=== PATIENT | female | born 1980 | race Caucasian/White ===

== ENCOUNTER 2019-09-17 10:06 | Inpatient (IN) | payer MEDICAID ==
[~2019-09-17] VITALS: Ht 165.1 cm; Wt 104.3 kg
[2019-09-17 10:12] VITALS: BP 97/45
--- NOTE | 2019-09-17 10:17 | NUR ---
PT AMBULATED TO ER BED 09
--- NOTE | 2019-09-17 10:28 | NUR ---
39/F /O DIARRHEA & EPIGASTRIC PAIN X YESTERDAY. TEMP 100.8 AT THIS TIME. DID NOT TAKE ANY ANTIPYRETIC TODAY. EPIGASTRIUM MODERATELY TENDER TO PALPATION. ACTIVE BOWEL SOUNDS. PAIN 6/10; VSS; BEDRAILS UP X1; ERMD TO EVALUATE PATIENT. MED HX :ASTHMA
[2019-09-17] MEDS ORDERED: ACETAMINOPHEN EXTRA STRENGTH 500 MG TAB PO ONE (10:30)
[2019-09-17] MEDS ORDERED: LEVOFLOXACIN 500 MG TAB PO ONE (11:00)
[2019-09-17] MEDS ORDERED: LOPERAMIDE 2 MG CAP PO ONE (11:00)
[2019-09-17] MEDS ORDERED: KETOROLAC 60 MG/2 ML VIAL IM ONE (11:00)
--- NOTE | 2019-09-17 11:55 | NUR ---
DR. MILLER SPEAKING WITH PATIENT AT BEDSIDE.
[2019-09-17 11:59] LABS: APPEARANCE,URINE SL CLOUDY (CLEAR); BILIRUBIN,URINE NEGATIVE (NEGATIVE); BLOOD, URINE 2+ (NEGATIVE); COLOR,URINE YELLOW (YELLOW); LEUKOCYTE ESTERASE ,URINE NEGATIVE (NEGATIVE); NITRITE, URINE NEGATIVE (NEGATIVE); UGLUCOSE NEGATIVE (NEGATIVE)
[2019-09-17 12:57] LABS: RBC,URINE 0-5 /HPF (0-5)
[2019-09-17 13:00] LABS: WBC,URINE 0-5 /HPF (0-5)
[2019-09-17] MEDS ORDERED: NACL 0.9% 1,000 ML IV ONE (13:35)
[2019-09-17] MEDS ORDERED: NACL 0.9% 1,000 ML IV SCH (13:36)
--- NOTE | 2019-09-17 13:52 | NUR ---
LAB DRAW HANDED TO POLICE RESERVES COMMANDER.
[2019-09-17 14:19] LABS: BASOPHILS # (AUTO) 0.1 K/uL (0.00-0.22); BASOPHILS % (AUTO) 0.6 % (0.0-2.0); HEMATOCRIT 39.7 % (36-48); HEMOGLOBIN 13.3 g/dL (12.0-16.0); LYMPHOCYTES # (AUTO) 0.8 K/uL (2.5-16.5); LYMPHOCYTES % (AUTO) 7.7 % (20.5-51.1); MEAN CORPUSCULAR HEMOGLOBIN 29 pg (27-31); MEAN CORPUSCULAR HGB CONC 33 g/dL (33-37); MEAN CORPUSCULAR VOLUME 86.1 fL (80-94); MONOCYTES # (AUTO) 0.8 K/uL (0.8-1.0); MONOCYTES % (AUTO) 7.9 % (1.7-9.3); NEUTROPHILS % (AUTO) 83.8 % (42.2-75.2); PLATELET COUNT (AUTO) 242 K/uL (140-450); RED BLOOD CELL COUNT(AUTO) 4.61 MIL/uL (4.20-5.40); RED CELL DISTRIBUTION WIDTH 14.4 % (11.6-13.7); WHITE BLOOD COUNT (AUTO) 10.7 K/uL (4.8-10.8)
--- NOTE | 2019-09-17 14:34 | NUR ---
PT RETURNED FROM CT VIA WHEELCHAIR.
[2019-09-17 15:56] LABS: POTASSIUM 3.3 mmol/L (3.5-5.1)
[2019-09-17 15:57] LABS: ANION GAP 16.2 (8-16); CARBON DIOXIDE 22.1 mmol/L (21-32); CREATININE 0.8 mg/dL (0.6-1.3)
[2019-09-17] MEDS ORDERED: DOCUSATE SODIUM 100 MG GELCAP PO PRN (16:45)
[2019-09-17] MEDS ORDERED: ONDANSETRON 4 MG/2 ML VIAL IM/IVP PRN (16:45)
--- NOTE | 2019-09-17 16:45 | NUR ---
Patient will be admitted to care of DR. HAILE. Admited to MED SURG. Will go to room 105B. Belongings list completed. Report to SERGE JOEL.
--- NOTE | 2019-09-17 16:45 | NUR ---
PT ARRIVED FROM ER IN WHEELCHAIR, REPORT RECEIVED FROM NOISE TESTER NURSE, PT AMBULATES FROM HALLWAY TO BED WITHOUT PROBLEM WITH STEADY GAIT, PT ORIENTED TO ROOM AND FLOOR, CALL HERNANDEZ WITHIN REACH, SIDE RAILS UP, BED LOCKED IN LOW POSITION, [facility] Addendum: 09/17/19 at 1804 by Raya Painter RN REPORT RECEIVED FROM ER NURSE
[2019-09-17] MEDS ORDERED: POTASSIUM CHLORIDE 10 MEQ TABER PO ONE (16:50)
[2019-09-17] MEDS ORDERED: INSULIN LISPRO SLIDING SCALE 100 UNITS/ML VIAL SUBQ PRN (16:55)
[2019-09-17] MEDS ORDERED: DEXTROSE 50% 50 ML SYR IVP PRN (16:55)
[2019-09-17 17:00] VITALS: BP 137/65
[2019-09-17] MEDS ORDERED: ALBUTEROL SULFATE/IPRATROPIU 3 ML SOL IH PRN (17:00)
[2019-09-17] MEDS: NACL 0.9% 1,000 ML IV SCH (18:12)
[2019-09-17] MEDS: KETOROLAC 15 MG/ML VIAL IVP PRN (18:12)
--- NOTE | 2019-09-17 18:12 | NUR ---
MEDICATED WITH TORADOL FOR ABD PAIN, PT C/O BEING HUNGRY, PER DR DENT, OK TO EAT BRAT DIET, APPLESAUCE AND CRACKERS AND WATER GIVEN AT THIS TIME.
[2019-09-17 19:13] LABS: PHOSPHORUS 1.7 mg/dL (2.5-4.9); THYROID STIMULATING HORMONE 0.6 uIU/mL (0.34-3.74)
--- NOTE | 2019-09-17 19:30 | NUR ---
REPORT GIVEN TO LEAD SYSTEMS ARCHITECT NURSE, PT IN STABLE CONDITION,
--- NOTE | 2019-09-17 19:30 | NUR ---
COLLECTED INFLUENZA SWAB, SENT TO LAB
--- NOTE | 2019-09-17 19:31 | NUR ---
RECEIVED REPORT PT FROM AM NURSE, PT A A O X 4. PT AMBULATORY, MEDSURG. PT NOT IN RESPIRATORY DISTRESS, AND PT WAS GIVEN PAIN MED FOR ABDOMINAL PAIN EARLIER PER PREVIOUS NURSE. WITH NS AT 120 ML/ HR AT THE L AC G 20. PLACED PATIENT IN COMFORTABLE POSITION, CALL LIGHT W/IN REACH. WILL CONTINUE TO MONITOR
[2019-09-17] MEDS ORDERED: cefTRIAXone 1,000 MG VIAL ONE (20:00)
[2019-09-17] MEDS: HYDROcodone/APAP 5/325 MG 1 TAB TAB PO PRN (20:06)
--- NOTE | 2019-09-17 20:06 | NUR ---
PT C/O OF 910 ABDOMINAL PAIN, WILL REASSESS LATER
[2019-09-17] MEDS: BLOOD GLUCOSE MONITORING 1 DEV DEV FS SCH (20:27)
--- NOTE | 2019-09-17 20:37 | NUR ---
RECEIVED PT ON RA, SP02 98% WITH CLEAR BREATH SOUNDS. NO RESPIRATORY DISTRESS NOTED AT THIS TIME. PRN TX NOT GIVEN. PT WAS INFORMED TO CALL RN WHEN EXPERIENCING SOB OR WHEEZING. WILL CONTINUE TO MONITOR PT
[2019-09-17] MEDS: metroNIDAZOLE 500 MG/NS PREMIX 100 ML IV SCH (23:14)
--- NOTE | 2019-09-17 23:30 | NUR ---
COLLECTED URINE FOR URINE CULTURE ; COLLECTED STOOL, FRO STOOL CULTURE, BLACK STOOL NOTED
[2019-09-18] VITALS: BP 126/84
--- NOTE | 2019-09-18 00:48 | NUR ---
WILL INFORM DR. JAILENE FARR STOOL, LOOSE, MODERATE IN AMOUNT; DR. HARLEY AT ED
[2019-09-18 00:49] LABS: BARBITURATE, URINE NEG. ng/ml (NEG <=200); BENZODIAZEPINE, URINE NEG. ng/mL (NEG <=200); CANNABINOID, URINE NEG. ng/mL (NEG <=50); COCAINE, URINE NEG. ng/mL (NEG <=300); OPIATE, URINE NEG. ng/mL (NEG <=2000); PHENCYCLIDINE SCREEN,URINE NEG. ng/mL (NEG <=25)
[2019-09-18] MEDS: NACL 0.9% 1,000 ML IV SCH ×2 (01:02→05:55)
--- NOTE | 2019-09-18 01:15 | NUR ---
INMFORMED DR. DENT, PT REPORTED 5X BM AT HOME AND 4X BM YESTERDAY (STOOL COLLECTED AT 2230 FOR OVA PARASITE, ETC). DR. DENT TO INCLUDE C. DIFF IN THE STOOL. PAPER FOR C. DIFF SENT TO LAB. SPECIMEN STILL AT THE LAB AND INFORMED LAB, RHAIN TO INCLUDE C. DIFF OF THE STOOL IN THE COLLECTED STOOL EARLIER.
[2019-09-18] MEDS: HYDROcodone/APAP 5/325 MG 1 TAB TAB PO PRN ×2 (01:45→13:21)
--- NOTE | 2019-09-18 01:45 | NUR ---
PT AGAIN C/O OF ABD PAIN 07/25 , WILL REASSESS PT. Addendum: 09/18/19 at 0345 by Magalys Cooper RN PAIN MEDS ADMINISTERED
--- NOTE | 2019-09-18 03:46 | NUR ---
PT SLEEPING AT THIS TIME, NO COMPLAINTS,NO RESPIRATORY DISTRESS, NO DIARRHEA. WILL CONTINUE TO MONITOR
[2019-09-18] MEDS: BLOOD GLUCOSE MONITORING 1 DEV DEV FS SCH ×4 (05:42→21:48)
[2019-09-18] MEDS: metroNIDAZOLE 500 MG/NS PREMIX 100 ML IV SCH ×3 (06:21→23:06)
--- NOTE | 2019-09-18 06:56 | NUR ---
PT ASLLEP BUT WASILY AWAKENED BY VERBAL STIMULI, NOT IN RESPIRATORY DISTRESS, FOR MONITORING OF ABDOMINAL PAIN. WILL ENDORSE TO NEXT SHIFT
--- NOTE | 2019-09-18 07:15 | NUR ---
RECEIVED PT FROM NIGHT NURSE. PT AWAKE IN BED, AAOX4. RESPIRATIONS EVEN AND UNLABORED ON ROOM AIR. CLEAR BREATH SOUNDS. IV IN PLACE INFUSING PER ORDER, ASYMPTOMATIC AND PATENT IN L AC 20G. PT DENIES PAIN AT THIS TIME. BED IN LOW POSITION. SAFETY MEASURES IN PLACE. CALL LIGHT WITHIN REACH. WILL CONTINUE TO MONITOR.
[2019-09-18 07:27] LABS: BASOPHILS % (AUTO) 0.4 % (0.0-2.0); EOSINOPHILS % (AUTO) 0.2 % (0.0-4.0); HEMATOCRIT 37.1 % (36-48); HEMOGLOBIN 12.2 g/dL (12.0-16.0); LYMPHOCYTES # (AUTO) 1.2 K/uL (2.5-16.5); LYMPHOCYTES % (AUTO) 15.3 % (20.5-51.1); MEAN CORPUSCULAR HEMOGLOBIN 29 pg (27-31); MEAN CORPUSCULAR HGB CONC 33 g/dL (33-37); MEAN CORPUSCULAR VOLUME 86.7 fL (80-94); MONOCYTES # (AUTO) 1.1 K/uL (0.8-1.0); MONOCYTES % (AUTO) 14.7 % (1.7-9.3); NEUTROPHILS # (AUTO) 5.3 K/uL (1.8-7.7); NEUTROPHILS % (AUTO) 69.4 % (42.2-75.2); PLATELET COUNT (AUTO) 227 K/uL (140-450); RED BLOOD CELL COUNT(AUTO) 4.27 MIL/uL (4.20-5.40); RED CELL DISTRIBUTION WIDTH 14.3 % (11.6-13.7); WHITE BLOOD COUNT (AUTO) 7.6 K/uL (4.8-10.8)
[2019-09-18 07:50] LABS: ANION GAP 13.4 (8-16); CREATININE 0.6 mg/dL (0.6-1.3); POTASSIUM 4.4 mmol/L (3.5-5.1)
[2019-09-18 07:59] LABS: CHOL/HDL RATIO 2.3 (1-4.5)
[2019-09-18 08:00] VITALS: BP 117/65
--- NOTE | 2019-09-18 08:05 | NUR ---
PATIENT HAS BEEN SCREENED AND CATEGORIZED MODERATE NUTRITION RISK. PATIENT WILL BE SEEN WITHIN 3-5 DAYS OF ADMISSION. 09/20/19 09/22/[address]
[2019-09-18 08:21] LABS: FREE T4 (FREE THYROXINE) 1.32 ng/dL (0.76-1.46)
[2019-09-18] MEDS: ACETAMINOPHEN 325 MG TAB PO PRN ×2 (08:47→21:30)
--- NOTE | 2019-09-18 08:52 | NUR ---
MEDICATIONS GIVEN PER ORDER. PT TOLERATED WELL. NO DISTRESS NOTED. WILL CONTINUE TO MONITOR.
--- NOTE | 2019-09-18 11:10 | NUR ---
BLOOD GLUCOSE MONITORED AT THIS TIME. PT DENIES PAIN. NO DISTRESS NOTED. WILL CONTINUE TO MONITOR.
--- NOTE | 2019-09-18 13:20 | NUR ---
PT REQUESTED PRN NORCO FOR MANAGEMENT OF ABDOMINAL PAIN. WILL REASSESS.
--- NOTE | 2019-09-18 15:06 | NUR ---
MEDICATIONS ADMINISTERED PER ORDER. PT TOLERATED WELL. WILL CONTINUE TO MONITOR.
[2019-09-18 16:00] VITALS: BP 124/60
--- NOTE | 2019-09-18 17:30 | NUR ---
PT REQUESTS TAKING A SHOWER. CLEARED BY DR WITT TO TAKE SHOWER AT THIS TIME.
[2019-09-18] MEDS: DEXT 5% /NACL 0.9% 1,000 ML IV SCH (18:05)
[2019-09-18] MEDS ORDERED: INSULIN LISPRO SLIDING SCALE 100 UNITS/ML VIAL SUBQ PRN ×2 (18:20)
--- NOTE | 2019-09-18 19:15 | NUR ---
REPORT GIVEN TO NIGHT NURSE FOR CONTINUITY OF CARE.
--- NOTE | 2019-09-18 19:16 | NUR ---
RECEIVED BEDSIDE REPORT FROM AM SHIFT NURSE. PT IS LAYING IN BED SUPINE. NO SOB OR DISTRESS NOTED. ON ROOM AIR. IV ACCESS ON LEFT AC 20 GAUGE, PATENT, INTACT AND INFUSING WELL. PATIENT IS AMBULATORY. INITIAL ASSESSMENT DONE. BED IN LOW POSITION. SAFETY MEASURES IN PLACE. CALL LIGHT WITHIN PATIENT REACH. WILL CONTINUE TO MONITOR PATIENT.
[2019-09-18] MEDS ORDERED: MAG SULF 2000 MG/WATER PREMIX 100 ML IV SCH (20:00)
--- NOTE | 2019-09-18 20:10 | NUR ---
MAGNESIUM SULFATE GIVEN VIA IV PIGGYBACK. WILL CONTINUE TO MONITOR PATIENT.
--- NOTE | 2019-09-18 20:30 | NUR ---
PT CRYING AND COMPLAINED OF FEELING HOT AND IV SITE WAS UNCOMFORTABLE. MAG SULFATE STOPPED. AND MD DR. DENT MADE AWARE.
--- NOTE | 2019-09-18 20:38 | NUR ---
ERIN FROM LAB CALLED WITH RESULT OF PATIENT IS POSITIVE FOR GRAM POSITIVE COCCI IN CLUSTER FROM BLOOD CULTURE.
--- NOTE | 2019-09-18 21:00 | NUR ---
DR. DENT ASSESSED PATIENT AND WILL PUT IN ORDERS TO GIVE MAG OX PO.
[2019-09-18] MEDS ORDERED: MAGNESIUM OXIDE 400 MG TAB PO SCH (22:30)
--- NOTE | 2019-09-18 23:05 | NUR ---
MAG OX GIVEN PO PER MD ORDER. NO DISTRESS NOTED AT THIS TIME. WILL CONTINUE TO MONITOR PATIENT.
--- NOTE | 2019-09-18 23:30 | NUR ---
VITAL SIGNS TAKEN. FAMILY AT BEDSIDE. NO DISTRESS NOTED. WILL CONTINUE TO MONITOR PATIENT.
[2019-09-18 23:32] VITALS: BP 145/78
--- NOTE | 2019-09-18 23:45 | NUR ---
, DR. DENT MADE AWARE OF LAB RESULT. NO NEW ORDERS GIVEN AT THIS TIME.
--- NOTE | 2019-09-19 01:59 | NUR ---
ROUNDS DONE. PATIENT SLEEPING COMFORTABLY IN BED. VISIBLE CHEST RISE AND FALL NOTED. WILL CONTINUE TO MONITOR PATIENT.
[2019-09-19] MEDS: DEXT 5% /NACL 0.9% 1,000 ML IV SCH (04:05)
--- NOTE | 2019-09-19 04:15 | NUR ---
ROUNDS DONE. PT SLEEPING COMFORTABLY. NO DISTRESS NOTED. WILL CONTINUE TO MONITOR.
[2019-09-19] MEDS: HYDROcodone/APAP 5/325 MG 1 TAB TAB PO PRN (04:22)
[2019-09-19] MEDS: metroNIDAZOLE 500 MG/NS PREMIX 100 ML IV SCH ×2 (04:23→13:00)
[2019-09-19] MEDS: BLOOD GLUCOSE MONITORING 1 DEV DEV FS SCH ×2 (06:57→11:45)
--- NOTE | 2019-09-19 07:20 | NUR ---
PT IN STABLE CONDITION. CALL LIGHT WITHIN PATIENT REACH. ENDORSED TO AM SHIFT MARYCRUZ CHONG FOR CONTINUITY OF CARE.
--- NOTE | 2019-09-19 07:24 | NUR ---
RECEIVED REPORT FROM CINDER DUMP CRANE OPERATOR NURSE. PT AAOX4, NO C/O PAIN AT THIS TIME. IV ON LT AC 20 GA RUNNING IVF PER ORDER. RESPIRATIONS EVEN AND UNLABORED ON RA. ACTIVE BS, ABD SOFT, LBM 09/19. PER RN LUKE, PT REPORTED 1 EPISODE OF DIARRHEA DURING CINDER DUMP CRANE OPERATOR. SKIN IS INTACT, WARM TO TOUCH. PT IS AMBULATORY, SAFETY MEASURES IN PLACE, CALL LIGHT WITHIN REACH. REVIEWED POC WITH PT, PT VERBALIZED UNDERSTANDING.
[2019-09-19 07:29] LABS: HEMATOCRIT 32.7 % (36-48); HEMOGLOBIN 10.9 g/dL (12.0-16.0); MEAN CORPUSCULAR HEMOGLOBIN 29 pg (27-31); MEAN CORPUSCULAR HGB CONC 33 g/dL (33-37); MEAN CORPUSCULAR VOLUME 86.2 fL (80-94); PLATELET COUNT (AUTO) 227 K/uL (140-450); RED CELL DISTRIBUTION WIDTH 14.3 % (11.6-13.7); WHITE BLOOD COUNT (AUTO) 5.7 K/uL (4.8-10.8)
[2019-09-19 08:00] VITALS: BP 114/56
[2019-09-19] MEDS ORDERED: KETOROLAC 30 MG/ML VIAL IVP SCH (08:10)
--- NOTE | 2019-09-19 08:18 | NUR ---
ADMINISTERED MEDICATIONS PER ORDER, PT VERBALIZES UNDERSTANDING OF INDICATIONS AND POTENTIAL SIDE EFFECTS.
[2019-09-19] MEDS: KETOROLAC 15 MG/ML VIAL IVP PRN (08:19)
[2019-09-19] MEDS: NACL 0.9% 1,000 ML IV SCH ×2 (08:20→10:19)
[2019-09-19] MEDS ORDERED: SODIUM PHOS / POTASSIUM PHOS 1 PKT PDR PO SCH (09:00)
[2019-09-19] MEDS ORDERED: MAGNESIUM OXIDE 400 MG TAB PO SCH (09:00)
[2019-09-19] MEDS ORDERED: METR250T2 PO ×2 (09:07→11:12)
[2019-09-19] MEDS ORDERED: METF500T PO ×2 (09:07→11:12)
[2019-09-19] MEDS ORDERED: LACT-2 ×2 (09:07→11:12)
[2019-09-19] MEDS ORDERED: LANC-587 MC ×2 (09:07→11:12)
[2019-09-19] MEDS ORDERED: BLOO-697 MC (09:07)
[2019-09-19] MEDS ORDERED: GLUC-805 FS ×2 (09:07→11:12)
[2019-09-19] MEDS ORDERED: MAG400 PO ×2 (09:07→11:12)
[2019-09-19] MEDS ORDERED: METF-988 PO (09:08)
[2019-09-19 09:35] LABS: PHOSPHORUS 2.8 mg/dL (2.5-4.9)
[2019-09-19 09:53] LABS: CREATININE 0.6 mg/dL (0.6-1.3); POTASSIUM 4.1 mmol/L (3.5-5.1)
--- NOTE | 2019-09-19 10:40 | NUR ---
PT REPORTED THAT IV IS LEAKING. NOTIFIED DR. WITT, PER PHYSICIAN "OK NOT TO HAVE IV ACCESS AT THIS TIME." PT ALSO REFUSING PNA VACCINE, BUT FLU VACCINE IS "OKAY".
[2019-09-19] MEDS ORDERED: INFLUENZA VACCINE QUAD 0.5 ML SYR IMVAC PRN (10:45)
[2019-09-19 11:16] LABS: EOSINOPHILS % (MANUAL) 2 % (0-4); LYMPHOCYTES % (MANUAL) 36 % (20-46); MONOCYTES % (MANUAL) 14 % (5-12)
[2019-09-19 11:41] LABS: ANION GAP 14.9 (8-16); CARBON DIOXIDE 23.2 mmol/L (21-32)
--- NOTE | 2019-09-19 11:45 | NUR ---
BLOOD SUGAR CHECKED AT 120, NO INSULIN COVERAGE GIVEN, NO S/S OF HYPERGLYCEMIA NOTED.
--- NOTE | 2019-09-19 12:32 | NUR ---
BLUE PHONE/[employer] GEOLOGICAL SURVEY FIELD ASSISTANT REJI #[id number] USED TO ENHANCE [id number] COMMUNICATION. DR. HENRY AT BEDSIDE ANSWERING AND CLARIFYING PT'S QUESTIONS.
--- NOTE | 2019-09-19 13:52 | NUR ---
[facility] Patient: Susan Sargent : 1980 Age/Sex: 39/F Unit#: [id number] Room/Bed: 114/A User: Clover NEUMANN Date: 09/19/19 12:56 Type: CM: Discharge Planning Name: Lexie Amaral Sloan , I verified phone number with patient Relationship: sister Pre-Admission Living Arrangements: Lives with Other Other: and children Prior ADL Independent Current Home Health Name/Tel: N/A Current Name/Tel: N/A Current Hospice Name/Tel: N/A Current Dialysis Name/Tel: N/A Healthcare Decision Maker: Patient Advance Directive No Information Taught: Advance Directive Community Resources Person Taught: Patient Teaching Tools: Community Resources Verbal Factors Affecting Learning: None Participation Level: Active Evaluation: Gestures Understanding Verbalizes Understanding Educator: DAVID Padron Discipline: Case Mgt/Social Svcs Tentative Discharge Plan Summary: I met with patient at bedside. Patient alert and oriented x4. Patient speaks English. I introduced myself to patient and explained my role as a medical editor. She verbalized understanding. Patient lives at home with her family and plans to return home upon discharge. Patient goes to a medical clinic located in [place], [place] for her medical care. She does not recall name of clinic. She does not have any difficulty filling her prescriptions. She stated she has had depression in the past and took medication for it. She denied having any mental health disorder currently. She drives to medical clinic. She is independent with ADLs and does not use any DME at home. She denied alcohol/substance abuse. I provided patient with education on Advance Directive and provided her with blank form. I also provided patient with a list of mental health/counseling services in case any mental health needs arise. She thanked me for community resources and Advance Directive education. I provided patient with my contact information. [facility] and/or [facility] [facility] will follow up as needed. Signature: DAVID Padron Date: Sep 19, 2019
[2019-09-19] MEDS ORDERED: KETOROLAC 30 MG/ML VIAL IM SCH (14:00)
--- NOTE | 2019-09-19 14:35 | NUR ---
BLUE PHONE/[employer] GEOSPATIAL EXTRACTOR ANALYSIS NAHOMY #[id number] USED TO GIVE DISCHARGE INSTRUCTIONS TO PT, ALL QUESTIONS ANSWERED AND CLARIFIED. PT HAS NO SIGNS OF DISTRESS OR C/O PAIN.
--- NOTE | 2019-09-19 15:55 | NUR ---
PT HAS BEEN DISCHARGED. ALL PAPERWORK SIGNED, ALL QUESTIONS ANSWERED. ALL BELONGINGS IN PT POSSESSION, PT IS AWARE THAT PRESCRIPTIONS WERE SENT TO PREFERRED PHARMACY. WRISTBANDS REMOVED. PT TRANSFERRED OUT OF UNIT VIA WHEELCHAIR, AUDREY/TESTER VIBRATOR EQUIPMENT AT SIDE. PT IN STABLE CONDITION.
[2019-09-19] MEDS ORDERED: metFORMIN 500 MG TAB PO SCH (17:00)
== END 2019-09-19 15:55 | disposition home or self-care (01) | DRG 249 ==
LOC: MED 10:06 → MTU 16:13
PROVIDERS: ADMIT General Practice; ATTEND General Practice
DX: A08.4 Viral intestinal infection, unspecified (principal); E44.0 Moderate protein-calorie malnutrition; E83.42 Hypomagnesemia; E83.39 Other disorders of phosphorus metabolism; E86.0 Dehydration; E66.9 Obesity, unspecified; E11.9 Type 2 diabetes mellitus without complications; D64.9 Anemia, unspecified; E87.6 Hypokalemia; J45.909 Unspecified asthma, uncomplicated; Z90.49 Acquired absence of other specified parts of digestive tract; Z68.38 Body mass index [BMI] 38.0-38.9, adult
CPT/HCPCS: 36415; 71045; 80048; 80053; 80305; 81001; 81003; 81025; 82150; 82948; 83036; 83690; 83735; 83880; 84100; 84134; 84439; 84443; 84484; 85025; 85610; 85730; 87040; 87045; 87070; 87081; 87086; 87177; 87804; 89055; 96360; 96372; 99285; J0696; J1815; J1885; J3475; J3490; J7030; J7042; J7060; Q0092

== ENCOUNTER 2019-12-28 22:35 | Emergency (ER) | payer MEDICAID, OTHER ==
[~2019-12-28] VITALS: Ht 167.6 cm; Wt 87.5 kg
[~2019-12-28 22:35] MED LIST: BLOO-697 MC; GLUC-805 FS; LACT-2; LANC-587 MC; MAG400 PO; METF500T PO; METR250T2 PO
[2019-12-28 22:54] VITALS: BP 137/91
--- NOTE | 2019-12-28 23:01 | NUR ---
PT AMBULATED TO LOBBY TO A/W BED. FLU SWAB COLLECTED
--- NOTE | 2019-12-29 00:55 | NUR ---
PT CALLED IN LOBBY AND OUTSIDE WITH NO ANSWER
--- NOTE | 2019-12-29 01:05 | NUR ---
PT CALLED IN LOBBY AND OUTSIDE WITH NO ANSWER. PATIENT LEFT WITHOUT BEING SEEN BY DR. CLARK. NO FURTHER CARE PROVIDED FOR PATIENT.
== END 2019-12-29 00:55 | disposition left against medical advice (07) ==
LOC: MED 22:35
DX: M79.10 Myalgia, unspecified site (principal); R05 Cough; J02.9 Acute pharyngitis, unspecified; R11.2 Nausea with vomiting, unspecified; R50.9 Fever, unspecified; Z53.21 Procedure and treatment not carried out due to patient leaving prior to being seen by health care provider
CPT/HCPCS: 87804; 99281

== ENCOUNTER 2021-02-25 10:28 | Emergency (ER) | payer OTHER ==
[~2021-02-25] VITALS: Ht 167.6 cm; Wt 83.9 kg
[~2021-02-25 10:28] MED LIST changes: -MAG400 PO; +MAGN400T61 PO; +METR-520 PO; -METR250T2 PO
[2021-02-25 10:38] VITALS: BP 110/66
--- NOTE | 2021-02-25 10:41 | NUR ---
40Y F c/c of chest pain that started last night at 1200 first started as dizziness that turned into 8/10 pressure that radiates to her back, reports SOB. Denies N/V. PMH: Asthma and DM2 NKA Addendum: 02/25/21 at 1054 by [email or web address] 40Y F c/c of chest pain that started last night at 1200 first started as dizziness that turned into 8/10 pressure that radiates to her back, reports SOB and that pressure "feels like asthma" admits inspirartoy pain. She reports "some relief" when she used her inhaler. Denies N/V. PMH: Asthma and DM2 NKA RX: Albuterol
--- NOTE | 2021-02-25 10:41 | NUR ---
Pt ambulated to bed 8
--- NOTE | 2021-02-25 10:46 | NUR ---
EMT with EKG at bedside.
[2021-02-25] MEDS ORDERED: ALBUTEROL 0.083% 2.5 MG/3 ML NEBU INH ONE (11:00)
[2021-02-25] MEDS ORDERED: ASPIRIN 81 MG TAB.CHEW PO ONE (11:00)
[2021-02-25] MEDS ORDERED: IPRATROPIUM 0.02% 0.5 MG/2.5 ML NEBU INH ONE (11:00)
--- NOTE | 2021-02-25 11:00 | NUR ---
Chest X-ray at bedside.
--- NOTE | 2021-02-25 11:11 | NUR ---
RT at ot bedside for breathing tx.
[2021-02-25 11:17] LABS: BASOPHILS # (AUTO) 0.2 K/uL (0.00-0.22); BASOPHILS % (AUTO) 2.8 % (0.0-2.0); EOSINOPHILS # (AUTO) 0.1 K/uL (0-0.4); EOSINOPHILS % (AUTO) 1.5 % (0.0-4.0); HEMATOCRIT 38.2 % (36-48); HEMOGLOBIN 13.2 g/dL (12.0-16.0); LYMPHOCYTES # (AUTO) 1.6 K/uL (2.5-16.5); MEAN CORPUSCULAR HEMOGLOBIN 31 pg (27-31); MEAN CORPUSCULAR HGB CONC 35 g/dL (33-37); MEAN CORPUSCULAR VOLUME 89.5 fL (80-94); MONOCYTES # (AUTO) 0.3 K/uL (0.8-1.0); MONOCYTES % (AUTO) 6.1 % (1.7-9.3); NEUTROPHILS # (AUTO) 3.5 K/uL (1.8-7.7); NEUTROPHILS % (AUTO) 61.6 % (42.2-75.2); PLATELET COUNT (AUTO) 267 K/uL (140-450); RED BLOOD CELL COUNT(AUTO) 4.27 MIL/uL (4.20-5.40); RED CELL DISTRIBUTION WIDTH 12.1 % (11.6-13.7); WHITE BLOOD COUNT (AUTO) 5.7 K/uL (4.8-10.8)
[2021-02-25 11:30] LABS: ALBUMIN 3.4 g/dL (3.4-5.0); ANION GAP 12.5 (8-16); CARBON DIOXIDE 26.3 mmol/L (21-32); CREATININE 0.9 mg/dL (0.6-1.3); POTASSIUM 3.8 mmol/L (3.5-5.1); TOTAL BILIRUBIN 1.4 mg/dL (0.0-1.0)
--- NOTE | 2021-02-25 13:18 | NUR ---
veterinary technician at pt bedside.
--- NOTE | 2021-02-25 13:29 | NUR ---
Pt resting in bed, VSS, will continune to monitor.
[2021-02-25] MEDS ORDERED: PRED20TA5 PO (14:14)
[2021-02-25] MEDS ORDERED: ALBU0.0912 IH (14:14)
[2021-02-25 14:26] VITALS: BP 110/66
--- NOTE | 2021-02-25 14:28 | NUR ---
Patient discharged with v/s stable. Written and verbal after care instructions given and explained. Patient alert, oriented and verbalized understanding of instructions. Ambulatory with steady gait. All questions addressed prior to discharge. ID band removed. Patient advised to follow up with PMD. Rx of albuterol INH q4-6h prn, and prednisone 40mg po daily given x5days. Patient educated on indication of medication including possible reaction and side effects. Opportunity to ask questions provided and answered.
== END 2021-02-25 14:50 | disposition home or self-care (01) ==
LOC: MED 10:28
DX: R07.9 Chest pain, unspecified (principal); J45.901 Unspecified asthma with (acute) exacerbation; E11.9 Type 2 diabetes mellitus without complications; J45.909 Unspecified asthma, uncomplicated; Z79.84 Long term (current) use of oral hypoglycemic drugs; Z79.899 Other long term (current) drug therapy; Z90.49 Acquired absence of other specified parts of digestive tract; Z98.890 Other specified postprocedural states
CPT/HCPCS: 36415; 71045; 80053; 81002; 81025; 83880; 84484; 85025; 93005; 94640; 99285; J7613; J7644

== ENCOUNTER 2021-03-21 18:52 | Emergency (ER) | payer OTHER ==
[~2021-03-21] VITALS: Ht 167.6 cm; Wt 85.7 kg
[~2021-03-21 18:52] MED LIST changes: +ALBU0.0912 IH; +PRED20TA5 PO
[2021-03-21 19:01] VITALS: BP 130/72
--- NOTE | 2021-03-21 19:15 | NUR ---
RECEIVED IN BED 8 WITH C/O EPIGASTRIC PAIN AFTER RECEIVING 2ND COVID VACCINE 2 DAYS AGO. IS AWAKE AND ALERT WITH MUCH FACIAL GRIMACING NOTED. UA OBTAINED
[2021-03-21] MEDS ORDERED: ALUMINUM HYD/MAG/SIMETHICONE 30 ML UDC PO ONE (19:30)
--- NOTE | 2021-03-21 19:40 | NUR ---
SL ESTABLISHED, LABS DRAWN
[2021-03-21 19:49] LABS: BASOPHILS # (AUTO) 0.1 K/uL (0.00-0.22); BASOPHILS % (AUTO) 0.9 % (0.0-2.0); EOSINOPHILS # (AUTO) 0.1 K/uL (0-0.4); EOSINOPHILS % (AUTO) 1.6 % (0.0-4.0); LYMPHOCYTES # (AUTO) 1.6 K/uL (2.5-16.5); LYMPHOCYTES % (AUTO) 27.2 % (20.5-51.1); MEAN CORPUSCULAR HEMOGLOBIN 31 pg (27-31); MEAN CORPUSCULAR HGB CONC 34 g/dL (33-37); MEAN CORPUSCULAR VOLUME 90.6 fL (80-94); MONOCYTES # (AUTO) 0.6 K/uL (0.8-1.0); NEUTROPHILS # (AUTO) 3.6 K/uL (1.8-7.7); NEUTROPHILS % (AUTO) 60.3 % (42.2-75.2); PLATELET COUNT (AUTO) 264 K/uL (140-450); RED BLOOD CELL COUNT(AUTO) 4.19 MIL/uL (4.20-5.40)
[2021-03-21 20:03] LABS: ALBUMIN 3.6 g/dL (3.4-5.0); ANION GAP 10.7 (8-16); CARBON DIOXIDE 25.1 mmol/L (21-32); CREATININE 0.8 mg/dL (0.6-1.3); POTASSIUM 3.8 mmol/L (3.5-5.1); TOTAL BILIRUBIN 0.6 mg/dL (0.0-1.0)
--- NOTE | 2021-03-21 20:20 | NUR ---
CONSENT SIGNED FOR CT WITH CONTRAST
[2021-03-21 20:28] LABS: APPEARANCE,URINE CLEAR (CLEAR); BILIRUBIN,URINE NEGATIVE (NEGATIVE); BLOOD, URINE TRACE-I (NEGATIVE); COLOR,URINE YELLOW (YELLOW); LEUKOCYTE ESTERASE ,URINE TRACE (NEGATIVE); NITRITE, URINE NEGATIVE (NEGATIVE); UGLUCOSE NEGATIVE (NEGATIVE)
[2021-03-21 20:43] LABS: RBC,URINE 0-5 /HPF (0-5)
--- NOTE | 2021-03-21 21:30 | NUR ---
TO CT VIA W/C
--- NOTE | 2021-03-21 21:45 | NUR ---
RETURNED FROM CT
[2021-03-21] MEDS ORDERED: FAMO-92 PO (22:54)
--- NOTE | 2021-03-21 23:07 | NUR ---
READY FOR DISCHrge
[2021-03-21 23:10] VITALS: BP 124/68
--- NOTE | 2021-03-21 23:10 | NUR ---
Patient discharged with v/s stable. Written and verbal after care instructions given and explained. Patient verbalized understanding. Ambulatory with steady gait. All questions addressed prior to discharge. Advised to follow up with PMD.
== END 2021-03-21 23:10 | disposition home or self-care (01) ==
LOC: MED 18:52
DX: R10.12 Left upper quadrant pain (principal); R11.0 Nausea; J45.909 Unspecified asthma, uncomplicated; E11.9 Type 2 diabetes mellitus without complications; Z79.899 Other long term (current) drug therapy
CPT/HCPCS: 36415; 74177; 80053; 81001; 81025; 83690; 84703; 85025; 87086; 99285; Q9967

== ENCOUNTER 2021-08-10 20:27 | Emergency (ER) | payer OTHER ==
[~2021-08-10] VITALS: Ht 167.6 cm; Wt 77.1 kg
[~2021-08-10 20:27] MED LIST changes: +FAMO-92 PO
[2021-08-10 20:33] VITALS: BP 150/83
--- NOTE | 2021-08-10 20:33 | NUR ---
TO BED AMBULATORY
--- NOTE | 2021-08-10 21:25 | NUR ---
41 YO/F BIBS W C/O HEART PALPITATIONS X4 DAYS, SOB X1 DAY, COUGH X1 DAY, SORE THROAT X2 DAYS. PATIENT DENIES ANY CHEST PAIN BUT REPORTS FEELING PRESSURE IN HER CHEST. S1S2 PRESENT, SKIN WARM AND DRY, CAP REFIL <3 SEC, +2 RADIAL AND PEDAL PULSES, LUNG SOUNDS CLEAR THROUGH OUT, BREATHING EVEN AND UNLABORED. PATIENT DENIES N/V/D OR DIZZYNESS. DENIES ANY URINARY OR BOWEL PROBLEMS. PATIENT SITTING IN BED LOCKED IN LOWEST POSITION W X1 SIDERAIL UP. PATIENT CONNECTED TO MONITOR W VSS. NAD NOTED, WILL CONTINUE TO MONITOR. PMH:ASTHMA, DIABETES NKA
--- NOTE | 2021-08-10 21:30 | NUR ---
PER ERMD TO HOLD OFF ON IV INSERTION AT THIS TIME.
[2021-08-10 21:43] LABS: BASOPHILS # (AUTO) 0.1 K/uL (0.00-0.22); BASOPHILS % (AUTO) 0.8 % (0.0-2.0); EOSINOPHILS # (AUTO) 0.1 K/uL (0-0.4); EOSINOPHILS % (AUTO) 1.3 % (0.0-4.0); HEMATOCRIT 38.2 % (36-48); HEMOGLOBIN 12.9 g/dL (12.0-16.0); LYMPHOCYTES # (AUTO) 1.6 K/uL (2.5-16.5); LYMPHOCYTES % (AUTO) 23.8 % (20.5-51.1); MEAN CORPUSCULAR HEMOGLOBIN 31 pg (27-31); MEAN CORPUSCULAR HGB CONC 34 g/dL (33-37); MEAN CORPUSCULAR VOLUME 91.1 fL (80-94); MONOCYTES # (AUTO) 0.8 K/uL (0.8-1.0); MONOCYTES % (AUTO) 11.6 % (1.7-9.3); NEUTROPHILS # (AUTO) 4.3 K/uL (1.8-7.7); NEUTROPHILS % (AUTO) 62.5 % (42.2-75.2); PLATELET COUNT (AUTO) 255 K/uL (140-450); RED CELL DISTRIBUTION WIDTH 11.9 % (11.6-13.7); WHITE BLOOD COUNT (AUTO) 6.8 K/uL (4.8-10.8)
[2021-08-10 22:05] LABS: ALBUMIN 3.7 g/dL (3.4-5.0); CARBON DIOXIDE 25.4 mmol/L (21-32); CREATININE 0.9 mg/dL (0.6-1.3); FREE T4 (FREE THYROXINE) 1.04 ng/dL (0.76-1.46); POTASSIUM 3.4 mmol/L (3.5-5.1); THYROID STIMULATING HORMONE 1.96 uIU/mL (0.34-3.74); TOTAL BILIRUBIN 0.6 mg/dL (0.0-1.0)
[2021-08-10] MEDS ORDERED: PRED20TA5 PO (22:50)
[2021-08-10] MEDS ORDERED: ALBU6.7H IH (22:50)
[2021-08-10 23:14] VITALS: BP 137/75
--- NOTE | 2021-08-10 23:14 | NUR ---
Patient discharged with v/s stable. Written and verbal after care instructions given and explained. Patient alert, oriented and verbalized understanding of instructions. Ambulatory with steady gait. All questions addressed prior to discharge. ID band removed. Patient advised to follow up with PMD. Rx of PREDNISONE, ALBUTEROL SULFATE given. Patient educated on indication of medication including possible reaction and side effects. Opportunity to ask questions provided and answered.
== END 2021-08-10 23:14 | disposition home or self-care (01) ==
LOC: MED 20:27
DX: J06.9 Acute upper respiratory infection, unspecified (principal)
CPT/HCPCS: 36415; 71045; 80053; 84439; 84443; 84484; 85025; 93005; 99285; Q0092

== ENCOUNTER 2024-05-08 09:15 | Emergency (ER) | payer OTHER ==
[~2024-05-08] VITALS: Ht 167.6 cm; Wt 90.7 kg
[~2024-05-08 09:15] MED LIST changes: +ALBU6.7H6 IH; +METF-346 PO; -METF500T PO
[2024-05-08 09:24] VITALS: BP 118/75; PULSE 61; RESP 18; TEMP 97.3; O2SAT 100
[2024-05-08] MEDS: ACETAMINOPHEN EXTRA STRENGTH 500 MG TAB PO ONE (09:43)
[2024-05-08] MEDS: CYCLOBENZAPRINE 10 MG TAB PO ONE (09:44)
[2024-05-08] MEDS: KETOROLAC 30 MG/ML VIAL IM ONE (09:47)
[2024-05-08] MEDS: MORPHINE SULFATE 4 MG/ML SYR IM ONE (09:50)
[2024-05-08 10:25] LABS: APPEARANCE,URINE CLEAR (CLEAR); BILIRUBIN,URINE NEGATIVE (NEGATIVE); BLOOD, URINE 3+ (NEGATIVE); COLOR,URINE YELLOW (YELLOW); LEUKOCYTE ESTERASE ,URINE NEGATIVE (NEGATIVE); NITRITE, URINE NEGATIVE (NEGATIVE); PROTEIN,URINE NEGATIVE (NEGATIVE); UGLUCOSE NEGATIVE (NEGATIVE); UROBILINOGEN,URINE 0.2 EU/dL (0.2 - 1)
[2024-05-08 10:45] LABS: BACTERIA,URINE FEW /HPF (None Seen); SQUAMOUS EPITHELIAL CELL,UR 0-3 (FEW) /LPF (0-3 (FEW)); WBC,URINE 0-5 /HPF (0-5)
[2024-05-08 11:33] VITALS: BP 115/57; PULSE 55; RESP 15; TEMP 97.8; O2SAT 100
[2024-05-08] MEDS ORDERED: LID5T TP (12:45)
[2024-05-08] MEDS ORDERED: CYCL-711 PO (12:45)
== END 2024-05-08 12:59 | disposition home or self-care (01) ==
LOC: MED 09:15
DX: S39.012A Strain of muscle, fascia and tendon of lower back, initial encounter (principal); M54.40 Lumbago with sciatica, unspecified side; J45.909 Unspecified asthma, uncomplicated; E11.9 Type 2 diabetes mellitus without complications; Z79.84 Long term (current) use of oral hypoglycemic drugs; Z79.899 Other long term (current) drug therapy; X58.XXXA Exposure to other specified factors, initial encounter; Y93.B9 Activity, other involving muscle strengthening exercises; Y92.89 Other specified places as the place of occurrence of the external cause; Y99.8 Other external cause status
CPT/HCPCS: 72131; 81001; 81025; 96372; 99285; J1885; J2270